=== PATIENT | male | born 1975 | race African-American/Black ===

== ENCOUNTER 2016-05-14 22:47 | Emergency (ER) | payer OTHER | END 2016-05-15 01:30 | disposition home or self-care (01) | LOC: D.ER 22:47 | DX: J20.9 Acute bronchitis, unspecified (principal); J45.909 Unspecified asthma, uncomplicated; F17.200 Nicotine dependence, unspecified, uncomplicated ==

== ENCOUNTER 2016-08-11 03:04 | Emergency (ER) | payer OTHER | END 2016-08-11 04:33 | disposition home or self-care (01) | LOC: D.ER 03:04 | DX: J45.901 Unspecified asthma with (acute) exacerbation (principal) ==

== ENCOUNTER 2016-12-20 20:46 | Emergency (ER) | payer SELFPAY | END 2016-12-20 23:15 | disposition home or self-care (01) | LOC: D.ER 20:46 | DX: J06.9 Acute upper respiratory infection, unspecified (principal); B34.9 Viral infection, unspecified; R53.83 Other fatigue; R06.00 Dyspnea, unspecified; R06.2 Wheezing; F17.200 Nicotine dependence, unspecified, uncomplicated ==

== ENCOUNTER 2017-02-05 01:25 | Emergency (ER) | payer SELFPAY | END 2017-02-05 03:20 | disposition home or self-care (01) | LOC: D.ER 01:25 | DX: A64 Unspecified sexually transmitted disease (principal) ==

== ENCOUNTER 2017-03-06 08:19 | Emergency (ER) | payer SELFPAY | END 2017-03-06 09:58 | disposition home or self-care (01) | LOC: D.ER 08:19 | DX: J45.901 Unspecified asthma with (acute) exacerbation (principal); F17.200 Nicotine dependence, unspecified, uncomplicated ==

== ENCOUNTER 2017-04-14 08:22 | Emergency (ER) | payer SELFPAY | END 2017-04-14 10:49 | disposition home or self-care (01) | LOC: D.ER 08:22 | DX: J45.901 Unspecified asthma with (acute) exacerbation (principal); F17.200 Nicotine dependence, unspecified, uncomplicated ==

== ENCOUNTER 2017-05-03 10:27 | Emergency (ER) | payer SELFPAY | END 2017-05-03 12:05 | disposition home or self-care (01) | LOC: D.ER 10:27 | DX: J20.9 Acute bronchitis, unspecified (principal); J45.909 Unspecified asthma, uncomplicated; F17.200 Nicotine dependence, unspecified, uncomplicated ==

== ENCOUNTER 2017-08-20 17:42 | Emergency (ER) | payer SELFPAY | END 2017-08-20 19:36 | disposition home or self-care (01) | LOC: D.ER 17:42 | DX: J20.9 Acute bronchitis, unspecified (principal); J45.909 Unspecified asthma, uncomplicated; F17.200 Nicotine dependence, unspecified, uncomplicated ==

== ENCOUNTER 2017-09-01 22:42 | Emergency (ER) | payer MEDICAID | END 2017-09-02 00:40 | disposition home or self-care (01) | LOC: D.ER 22:42 | DX: J01.90 Acute sinusitis, unspecified (principal); J20.9 Acute bronchitis, unspecified; J45.909 Unspecified asthma, uncomplicated; F17.200 Nicotine dependence, unspecified, uncomplicated ==

== ENCOUNTER 2017-10-04 11:29 | Emergency (ER) | payer MEDICAID ==
[~2017-10-04] VITALS: Ht 177.8 cm; Wt 76.4 kg
[2017-10-04 11:34] VITALS: Ht 177.8 cm; Wt 76.4 kg
[2017-10-04 12:11] LABS: BASOPHILS 0.7 % (0-2); EOSINOPHILS 3.4 % (0-7); HEMATOCRIT 41.1 % (42.0-54.0); HEMOGLOBIN 13.8 g/dL (13.5-17.5); IMMATURE GRANULOCYTES 0.1 % (0-5); LYMPHOCYTES 40.7 % (15-50); MCH 28.9 pg (26.0-34.0); MCHC 33.6 g/dL (31.0-37.0); MCV 86.2 fL (80.0-100.0); MEAN PLATELET VOLUME 8.6 fL (7.4-10.4); MONOCYTES 8.6 % (2-11); NEUTROPHILS 46.5 % (40-80); PLATELET COUNT 306 10x3/uL (130-400); RBC 4.77 10x6/uL (4.20-6.10); RDW 14.5 % (11.5-14.5); WBC 6.7 10x3/uL (4.8-10.8)
[2017-10-04 12:28] LABS: ALBUMIN 3.4 g/dL (3.4-5.0); ALKALINE PHOSPHATASE 61 U/L (46-116); ALT (SGPT) 35 U/L (10-68); CALC OSMOLALITY 276 mosm/kg (275-300); CALCIUM 8.5 mg/dL (8.5-10.1); CARBON DIOXIDE 25.9 mmol/L (21.0-32.0); CHLORIDE - SERUM 106 mmol/L (98-107); CREATININE - SERUM 0.9 mg/dL (0.6-1.3); GLUCOSE 101 mg/dL (74-106); POTASSIUM - SERUM 3.6 mmol/L (3.5-5.1); PROTEIN - SERUM 7.6 g/dL (6.4-8.2); SODIUM 139 mmol/L (136-145); UREA NITROGEN 9 mg/dL (7-18); eGFR NON AFRICAN AMERICAN > 90 mL/min (90-120)
[2017-10-04 13:27] VITALS: BP 129/84
== END 2017-10-04 13:21 | disposition home or self-care (01) ==
LOC: D.ER 11:29
PROVIDERS: Family Medicine
DX: J01.90 Acute sinusitis, unspecified (principal); R06.2 Wheezing; R05 Cough; F17.200 Nicotine dependence, unspecified, uncomplicated

== ENCOUNTER 2017-11-29 23:28 | Emergency (ER) | payer MEDICAID ==
[2017-11-29 23:33] VITALS: Ht 177.8 cm
[2017-11-29 23:58] LABS: HEMATOCRIT 39.7 % (42.0-54.0); HEMOGLOBIN 12.9 g/dL (13.5-17.5); LYMPHOCYTES 43.4 % (15-50); MCH 27.9 pg (26.0-34.0); MCHC 32.5 g/dL (31.0-37.0); MCV 85.9 fL (80.0-100.0); MEAN PLATELET VOLUME 8.5 fL (7.4-10.4); NEUTROPHILS 48.5 % (40-80); PLATELET COUNT 368 10x3/uL (130-400); RBC 4.62 10x6/uL (4.20-6.10); RDW 14.7 % (11.5-14.5); WBC 6.9 10x3/uL (4.8-10.8)
[2017-11-30 00:04] LABS: APTT 29.7 SECONDS (22.8-39.4); INR 0.96 (0.85-1.17); PROTIME 12.4 SECONDS (11.6-15.0)
[2017-11-30 00:05] LABS: D-DIMER-QUANTITATIVE < 0.27 ug/mLFEU (0.20-0.54)
[2017-11-30 00:23] LABS: ALBUMIN 3.6 g/dL (3.4-5.0); ALKALINE PHOSPHATASE 73 U/L (46-116); ALT (SGPT) 28 U/L (10-68); BILIRUBIN - TOTAL 0.19 mg/dL (0.2-1.3); CALC OSMOLALITY 279 mosm/kg (275-300); CALCIUM 8.2 mg/dL (8.5-10.1); CARBON DIOXIDE 29.2 mmol/L (21.0-32.0); CHLORIDE - SERUM 106 mmol/L (98-107); CKMB 1.1 U/L (0.0-3.6); CREATINE KINASE 214 UL (21-232); GLUCOSE 98 mg/dL (74-106); POTASSIUM - SERUM 3.5 mmol/L (3.5-5.1); PRO BNP 44 pg/mL (0-125); PROTEIN - SERUM 7.8 g/dL (6.4-8.2); SODIUM 141 mmol/L (136-145); UREA NITROGEN 9 mg/dL (7-18); eGFR NON AFRICAN AMERICAN 88 mL/min (90-120)
[2017-11-30 00:28] LABS: TROPONIN-I < 0.017 ng/mL (0.000-0.060)
[2017-11-30] MEDS ORDERED: PROAIR HFA8.5 GM INH (00:50)
[2017-11-30 01:15] VITALS: BP 143/90
== END 2017-11-30 01:16 | disposition home or self-care (01) ==
LOC: D.ER 23:28
PROVIDERS: Family Medicine
DX: J45.901 Unspecified asthma with (acute) exacerbation (principal); F17.200 Nicotine dependence, unspecified, uncomplicated

== ENCOUNTER 2017-12-21 23:38 | Emergency (ER) | payer SELFPAY ==
[~2017-12-21] VITALS: Ht 177.8 cm; Wt 80.9 kg
[~2017-12-21 23:38] MED LIST: PROAIR HFA8.5 GM INH
[2017-12-21 23:58] VITALS: Ht 177.8 cm; Wt 80.9 kg
[2017-12-22 00:35] LABS: BASOPHILS 0.7 % (0-2); EOSINOPHILS 3.8 % (0-7); HEMATOCRIT 41.1 % (42.0-54.0); HEMOGLOBIN 13.9 g/dL (13.5-17.5); IMMATURE GRANULOCYTES 0.3 % (0-5); LYMPHOCYTES 45.1 % (15-50); MCHC 33.8 g/dL (31.0-37.0); MCV 85.8 fL (80.0-100.0); MEAN PLATELET VOLUME 9.1 fL (7.4-10.4); MONOCYTES 9.9 % (2-11); NEUTROPHILS 40.2 % (40-80); RBC 4.79 10x6/uL (4.20-6.10); RDW 14.6 % (11.5-14.5); WBC 7.6 10x3/uL (4.8-10.8)
[2017-12-22 00:37] LABS: PLATELET COUNT 290 10x3/uL (130-400)
[2017-12-22 00:43] LABS: APPEARANCE CLEAR (CLEAR); BILIRUBIN NEGATIVE (NEGATIVE); COLOR DK YELLOW (YELLOW); GLUCOSE NEGATIVE (NEGATIVE); KETONE NEGATIVE (NEGATIVE); NITRITE NEGATIVE (NEGATIVE); PROTEIN NEGATIVE (NEGATIVE); UROBILINOGEN NORMAL (NORMAL)
[2017-12-22 00:45] LABS: BACTERIA FEW /hpf (NONE SEEN); EPITHELIAL CELLS 0-5 /hpf (0-5); MUCUS >1+ /lpf (NONE SEEN); RED CELLS - URINE 0-5 /hpf (0-5); WHITE CELLS - URINE 0-5 /hpf (0-5)
[2017-12-22 00:52] LABS: ALBUMIN 3.7 g/dL (3.4-5.0); ALKALINE PHOSPHATASE 79 U/L (46-116); BILIRUBIN - TOTAL 0.64 mg/dL (0.2-1.3); CALC OSMOLALITY 278 mosm/kg (275-300); CARBON DIOXIDE 32.1 mmol/L (21.0-32.0); CHLORIDE - SERUM 103 mmol/L (98-107); GLUCOSE 101 mg/dL (74-106); POTASSIUM - SERUM 3.4 mmol/L (3.5-5.1); PROTEIN - SERUM 8.1 g/dL (6.4-8.2); SODIUM 139 mmol/L (136-145); UREA NITROGEN 14 mg/dL (7-18); eGFR NON AFRICAN AMERICAN 88 mL/min (90-120)
[2017-12-22 00:55] LABS: ALT (SGPT) 308 U/L (10-68)
[2017-12-22] MEDS ORDERED: PROAIR HFA8.5 GM INH (02:15)
[2017-12-22 02:35] VITALS: BP 134/86
[2017-12-25 16:08] LABS: CHLAMYDIA TRACHOMATIS, NAA Negative (Negative)
== END 2017-12-22 02:35 | disposition home or self-care (01) ==
LOC: D.ER 23:38
PROVIDERS: Family Medicine
DX: J45.901 Unspecified asthma with (acute) exacerbation (principal); J06.9 Acute upper respiratory infection, unspecified; F17.200 Nicotine dependence, unspecified, uncomplicated

== ENCOUNTER 2018-01-06 06:35 | Emergency (ER) | payer SELFPAY ==
[~2018-01-06] VITALS: Ht 177.8 cm; Wt 80.9 kg
[2018-01-06 06:40] VITALS: BP 130/92; Ht 177.8 cm; Wt 80.9 kg
[2018-01-06] MEDS ORDERED: PROVENTIL HFA6.7 GM INH (07:17)
[2018-01-06] MEDS ORDERED: FLOVENT HFA 11012 GM INH (07:17)
== END 2018-01-06 08:11 | disposition home or self-care (01) ==
LOC: D.ER 06:35
DX: J45.909 Unspecified asthma, uncomplicated (principal); F17.200 Nicotine dependence, unspecified, uncomplicated

== ENCOUNTER 2018-03-01 08:00 | Emergency (ER) | payer SELFPAY ==
[~2018-03-01] VITALS: Ht 177.8 cm; Wt 84.1 kg
[~2018-03-01 08:00] MED LIST changes: +FLOVENT HFA 11012 GM INH; +PROVENTIL HFA6.7 GM INH
[2018-03-01 08:07] VITALS: Ht 177.8 cm; Wt 84.1 kg
[2018-03-01] MEDS ORDERED: VENTOLIN HFA18 GM INH (08:41)
[2018-03-01] MEDS ORDERED: ZPAK PO (08:41)
[2018-03-01] MEDS ORDERED: STERAPRED DS 1210 MG PO (08:41)
[2018-03-01 09:09] VITALS: BP 130/78
== END 2018-03-01 09:10 | disposition home or self-care (01) ==
LOC: D.ER 08:00
DX: J45.901 Unspecified asthma with (acute) exacerbation (principal); J20.9 Acute bronchitis, unspecified; R09.89 Other specified symptoms and signs involving the circulatory and respiratory systems; F17.200 Nicotine dependence, unspecified, uncomplicated

== ENCOUNTER 2018-04-17 20:59 | Emergency (ER) | payer SELFPAY ==
[~2018-04-17] VITALS: Ht 177.8 cm; Wt 80.9 kg
[~2018-04-17 20:59] MED LIST changes: +STERAPRED DS 1210 MG PO; +VENTOLIN HFA18 GM INH; +ZPAK PO
[2018-04-17 21:03] VITALS: Ht 177.8 cm; Wt 80.9 kg
[2018-04-17 21:33] LABS: BASOPHILS 0.4 % (0-2); HEMATOCRIT 39.5 % (42.0-54.0); HEMOGLOBIN 13.5 g/dL (13.5-17.5); IMMATURE GRANULOCYTES 0.1 % (0-5); LYMPHOCYTES 29.8 % (15-50); MCH 29.2 pg (26.0-34.0); MCHC 34.2 g/dL (31.0-37.0); MCV 85.5 fL (80.0-100.0); MEAN PLATELET VOLUME 8.8 fL (7.4-10.4); MONOCYTES 12.7 % (2-11); PLATELET COUNT 294 10x3/uL (130-400); RBC 4.62 10x6/uL (4.20-6.10); RDW 15.4 % (11.5-14.5); WBC 7.4 10x3/uL (4.8-10.8)
[2018-04-17 21:41] LABS: APTT 29.2 SECONDS (22.8-39.4); INR 0.95 (0.85-1.17); PROTIME 12.2 SECONDS (11.6-15.0)
[2018-04-17 21:48] LABS: ALBUMIN 3.6 g/dL (3.4-5.0); ALKALINE PHOSPHATASE 60 U/L (46-116); ALT (SGPT) 31 U/L (10-68); BILIRUBIN - TOTAL 0.31 mg/dL (0.2-1.3); CALC OSMOLALITY 277 mosm/kg (275-300); CALCIUM 8.4 mg/dL (8.5-10.1); CARBON DIOXIDE 28.2 mmol/L (21.0-32.0); CHLORIDE - SERUM 102 mmol/L (98-107); CREATININE - SERUM 0.9 mg/dL (0.6-1.3); GLUCOSE 116 mg/dL (74-106); POTASSIUM - SERUM 3.2 mmol/L (3.5-5.1); PROTEIN - SERUM 8.1 g/dL (6.4-8.2); SODIUM 139 mmol/L (136-145); UREA NITROGEN 9 mg/dL (7-18); eGFR NON AFRICAN AMERICAN > 90 mL/min (90-120)
[2018-04-17 21:59] LABS: CKMB 2.1 U/L (0.0-3.6); CREATINE KINASE 258 UL (21-232)
[2018-04-17 22:01] LABS: TROPONIN-I < 0.017 ng/mL (0.000-0.060)
[2018-04-17] MEDS ORDERED: STERAPRED DS 1010 MG PO (22:22)
[2018-04-17] MEDS ORDERED: ZPAK PO (22:22)
[2018-04-17 22:40] VITALS: BP 140/76
== END 2018-04-17 22:41 | disposition home or self-care (01) ==
LOC: D.ER 20:59
PROVIDERS: Family Medicine
DX: J45.901 Unspecified asthma with (acute) exacerbation (principal); R05 Cough

== ENCOUNTER 2018-07-21 08:40 | Emergency (ER) | payer OTHER ==
[~2018-07-21] VITALS: Ht 177.8 cm; Wt 80.9 kg
[~2018-07-21 08:40] MED LIST changes: +STERAPRED DS 1010 MG PO
[2018-07-21 08:44] VITALS: Ht 177.8 cm; Wt 80.9 kg
[2018-07-21] MEDS ORDERED: MUCINEX600 MG PO (09:03)
[2018-07-21] MEDS ORDERED: ALBUTEROL SULF8.5 GM INH (09:03)
[2018-07-21] MEDS ORDERED: FLOVENT HFA 11012 GM INH (09:03)
[2018-07-21] MEDS ORDERED: ZITHROMAX500 MG PO (09:03)
[2018-07-21 10:02] VITALS: BP 122/78
== END 2018-07-21 10:04 | disposition home or self-care (01) ==
LOC: D.ER 08:40
DX: J45.909 Unspecified asthma, uncomplicated (principal)

== ENCOUNTER 2018-12-19 16:30 | Emergency (ER) | payer MEDICAID ==
[~2018-12-19] VITALS: Ht 177.8 cm; Wt 75.0 kg
[~2018-12-19 16:30] MED LIST changes: +ALBUTEROL SULF8.5 GM INH; +MUCINEX600 MG PO; +ZITHROMAX500 MG PO
[2018-12-19 16:37] VITALS: Ht 177.8 cm; Wt 75.0 kg
[2018-12-19] MEDS ORDERED: KEFLEX500 MG PO (19:51)
[2018-12-19] MEDS ORDERED: NAPROSYN500 MG PO (19:51)
[2018-12-19] MEDS ORDERED: TYLENOL W/CODEI1 TAB PO (19:51)
[2018-12-19 20:28] VITALS: BP 149/98
== END 2018-12-19 20:29 | disposition home or self-care (01) ==
LOC: D.ER 16:30
DX: S01.81XA Laceration without foreign body of other part of head, initial encounter (principal); S51.812A Laceration without foreign body of left forearm, initial encounter; W18.2XXA Fall in (into) shower or empty bathtub, initial encounter; Y93.E1 Activity, personal bathing and showering; Y92.012 Bathroom of single-family (private) house as the place of occurrence of the external cause

== ENCOUNTER 2019-01-01 12:28 | Emergency (ER) | payer MEDICAID ==
[~2019-01-01] VITALS: Ht 177.8 cm; Wt 75.2 kg
[~2019-01-01 12:28] MED LIST changes: +KEFLEX500 MG PO; +NAPROSYN500 MG PO; +TYLENOL W/CODEI1 TAB PO
[2019-01-01 12:33] VITALS: BP 127/77; Ht 177.8 cm; Wt 75.2 kg
== END 2019-01-01 13:25 | disposition home or self-care (01) ==
LOC: D.ER 12:28
DX: S01.81XD Laceration without foreign body of other part of head, subsequent encounter (principal); S61.512D Laceration without foreign body of left wrist, subsequent encounter; Z48.02 Encounter for removal of sutures

== ENCOUNTER 2019-01-16 07:32 | Emergency (ER) | payer MEDICAID ==
[~2019-01-16] VITALS: Ht 177.8 cm; Wt 75.0 kg
[2019-01-16 07:35] VITALS: Ht 177.8 cm; Wt 75.0 kg
[2019-01-16 08:11] LABS: BASOPHILS 0.9 % (0-2); EOSINOPHILS 8.3 % (0-7); HEMATOCRIT 39.8 % (42.0-54.0); HEMOGLOBIN 13.9 g/dL (13.5-17.5); LYMPHOCYTES 42.7 % (15-50); MCH 29.4 pg (26.0-34.0); MCHC 34.9 g/dL (31.0-37.0); MCV 84.1 fL (80.0-100.0); MEAN PLATELET VOLUME 8.8 fL (7.4-10.4); MONOCYTES 12.9 % (2-11); NEUTROPHILS 35.2 % (40-80); PLATELET COUNT 278 10x3/uL (130-400); RBC 4.73 10x6/uL (4.20-6.10); RDW 14.7 % (11.5-14.5); WBC 5.4 10x3/uL (4.8-10.8)
[2019-01-16 08:18] LABS: INR 0.94 (0.85-1.17); PROTIME 12.1 SECONDS (11.6-15.0)
[2019-01-16 08:30] LABS: ALBUMIN 3.8 g/dL (3.4-5.0); ALKALINE PHOSPHATASE 69 U/L (46-116); ALT (SGPT) 28 U/L (10-68); BILIRUBIN - TOTAL 0.27 mg/dL (0.2-1.3); CALC OSMOLALITY 286 mosm/kg (275-300); CALCIUM 8.3 mg/dL (8.5-10.1); CARBON DIOXIDE 25.8 mmol/L (21.0-32.0); CHLORIDE - SERUM 106 mmol/L (98-107); GLUCOSE 91 mg/dL (74-106); POTASSIUM - SERUM 3.9 mmol/L (3.5-5.1); PROTEIN - SERUM 8.4 g/dL (6.4-8.2); SODIUM 144 mmol/L (136-145); UREA NITROGEN 12 mg/dL (7-18); eGFR NON AFRICAN AMERICAN 87 mL/min (90-120)
[2019-01-16 08:42] LABS: CKMB 2.4 U/L (0.0-3.6); CREATINE KINASE 298 UL (21-232); PRO BNP 24 pg/mL (0-125)
[2019-01-16 08:43] LABS: TROPONIN-I < 0.017 ng/mL (0.000-0.060)
[2019-01-16] MEDS ORDERED: ALBUTEROL SULF8.5 GM INH (09:23)
[2019-01-16] MEDS ORDERED: ZPAK PO (09:23)
[2019-01-16] MEDS ORDERED: MEDROL DOSE PACK4 MG PO (09:23)
[2019-01-16 10:05] VITALS: BP 124/83
== END 2019-01-16 10:18 | disposition home or self-care (01) ==
LOC: D.ER 07:32
PROVIDERS: Family Medicine
DX: R06.2 Wheezing (principal); J40 Bronchitis, not specified as acute or chronic; F17.200 Nicotine dependence, unspecified, uncomplicated; J45.909 Unspecified asthma, uncomplicated

== ENCOUNTER 2019-04-16 12:09 | Emergency (ER) | payer MEDICAID ==
[~2019-04-16] VITALS: Ht 177.8 cm; Wt 82.3 kg
[~2019-04-16 12:09] MED LIST changes: +MEDROL DOSE PACK4 MG PO
[2019-04-16 12:27] VITALS: BP 146/84; Ht 177.8 cm; Wt 82.3 kg
== END 2019-04-16 14:01 | disposition home or self-care (01) ==
LOC: D.ER 12:09
DX: J02.8 Acute pharyngitis due to other specified organisms (principal); Z72.0 Tobacco use